=== PATIENT | female | born 2000 | race Caucasian/White ===

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

== ENCOUNTER 2019-04-09 15:39 | Emergency (ER) | payer BC, OTHER ==
[~2019-04-09] VITALS: Ht 160 cm; Wt 49.0 kg
[2019-04-09 15:47] VITALS: BP 108/71
[2019-04-09 16:31] LABS: BILIRUBIN NEGATIVE (NEGATIVE); BLOOD NEGATIVE (NEGATIVE); CLARITY CLEAR (CLEAR); COLOR YELLOW (YELLOW); GLUCOSE NEGATIVE (NEGATIVE); KETONE NEGATIVE (NEGATIVE); LEUKO ESTERASE 1+ (NEGATIVE); NITRITE NEGATIVE (NEGATIVE); PH 5.5 (5.0-9.0); UROBILINOGEN 0.2 E.U./dl (0.2-1.0)
[2019-04-09 16:50] LABS: BACTERIA 2+; RBC 0-2 rbc/hpf (0-2)
[2019-04-09] MEDS ORDERED: ZOFRAN4 MG PO (17:12)
== END 2019-04-09 17:24 | disposition home or self-care (01) ==
LOC: ED 15:39
PROVIDERS: Nurse Practitioner Family
DX: A08.4 Viral intestinal infection, unspecified (principal); R11.2 Nausea with vomiting, unspecified; K21.9 Gastro-esophageal reflux disease without esophagitis; Z79.899 Other long term (current) drug therapy

== ENCOUNTER 2019-05-23 16:44 | Emergency (ER) | payer BC, OTHER ==
[~2019-05-23] VITALS: Ht 160 cm; Wt 49.9 kg
[~2019-05-23 16:44] MED LIST changes: +ZOFRAN4 MG PO
[2019-05-23 16:52] VITALS: BP 115/63
[2019-05-23] MEDS ORDERED: AMOXICILLIN500 M2 PO (17:48)
[2019-05-23] MEDS ORDERED: IBUPROFEN600 MG PO (17:48)
== END 2019-05-23 18:11 | disposition home or self-care (01) ==
LOC: ED 16:44
DX: J02.9 Acute pharyngitis, unspecified (principal); Z79.899 Other long term (current) drug therapy

== ENCOUNTER 2019-06-02 17:01 | Emergency (ER) | payer BC, OTHER ==
[~2019-06-02] VITALS: Ht 160 cm; Wt 49.9 kg
[~2019-06-02 17:01] MED LIST changes: +AMOXICILLIN500 M2 PO; +IBUPROFEN600 MG PO
[2019-06-02 17:11] VITALS: BP 105/61
== END 2019-06-02 18:00 | disposition home or self-care (01) ==
LOC: ED 17:01
DX: J06.9 Acute upper respiratory infection, unspecified (principal); K21.9 Gastro-esophageal reflux disease without esophagitis

== ENCOUNTER 2019-06-14 14:57 | Emergency (ER) | payer BC, OTHER ==
[~2019-06-14] VITALS: Ht 160 cm; Wt 49.9 kg
[2019-06-14] MEDS ORDERED: ISIBLOOM 28 DA1 EACH PO (15:29)
[2019-06-14 16:02] LABS: BILIRUBIN 1+ (NEGATIVE); BLOOD NEGATIVE (NEGATIVE); CLARITY SL CLOUDY (CLEAR); COLOR YELLOW (YELLOW); GLUCOSE NEGATIVE (NEGATIVE); KETONE NEGATIVE (NEGATIVE); LEUKO ESTERASE NEGATIVE (NEGATIVE); NITRITE NEGATIVE (NEGATIVE); UROBILINOGEN 0.2 E.U./dl (0.2-1.0)
[2019-06-14 16:04] LABS: BACTERIA TRACE; MUCOUS 2+
[2019-06-14 16:23] VITALS: BP 122/89
[2019-06-14] MEDS ORDERED: ZOFRAN4 MG PO (16:24)
== END 2019-06-14 16:35 | disposition home or self-care (01) ==
LOC: ED 14:57
PROVIDERS: Physician Assistant
DX: A08.4 Viral intestinal infection, unspecified (principal); R11.10 Vomiting, unspecified; R19.7 Diarrhea, unspecified; R30.0 Dysuria; K21.9 Gastro-esophageal reflux disease without esophagitis; Z79.899 Other long term (current) drug therapy

== ENCOUNTER → 2020-03-22 | Outpatient (CLI) | payer BC, OTHER ==
[~2020-03-22] MED LIST changes: +ISIBLOOM 28 DA1 EACH PO
== END | disposition home or self-care (01) ==
LOC: COVID19 11:56
PROVIDERS: ATTEND Family Medicine
DX: Z20.828 Contact with and (suspected) exposure to other viral communicable diseases (principal)

== ENCOUNTER 2020-04-10 13:22 | Emergency (ER) | payer BC, OTHER ==
[~2020-04-10] VITALS: Ht 160 cm; Wt 52.2 kg
[2020-04-10 13:26] VITALS: BP 112/63
== END 2020-04-10 14:00 | disposition home or self-care (01) ==
LOC: ED 13:22
DX: R11.0 Nausea (principal); Z32.02 Encounter for pregnancy test, result negative; Z79.899 Other long term (current) drug therapy

== ENCOUNTER 2020-06-26 20:02 | Emergency (ER) | payer BC, OTHER ==
[~2020-06-26] VITALS: Ht 160 cm; Wt 49.9 kg
[2020-06-26] MEDS ORDERED: PYRIDOXINE HCL25 MG PO (20:28)
[2020-06-26] MEDS ORDERED: UNISOM25 M1 PO (20:29)
[2020-06-26] MEDS ORDERED: PRENATE CHEWABLE1 MG PO (20:29)
[2020-06-26 21:24] LABS: BASO # 0.1 10*3/uL (0.0-0.1); BASO % 0.7 % (0.0-1.0); EOS % 0.3 % (1.0-4.0); LYMPH # 2.5 10*3/uL (1.3-4.4); LYMPH % 20.9 % (27.0-41.0); MEAN CELL VOLUME 84.2 fl (81.0-99.0); MEAN CORPUSCULAR HGB 28.6 pg (27.0-31.0); MEAN PLATELET VOLUME 12.3 fl (9.6-12.3); MONO # 0.7 10*3/uL (0.1-1.0); MONO % 5.8 % (3.0-9.0); NEUT # 8.7 10*3/uL (2.3-7.9); PLATELET COUNT AUTOMATED 206 10*3/uL (130-400); RED BLOOD COUNT 4.75 10*6/uL (4.10-5.10); RED CELL DISTRI WIDTH 12.6 % (0-14.5); WHITE BLOOD COUNT 12.1 10*3/uL (4.8-10.8)
[2020-06-26 21:28] LABS: BILIRUBIN Negative (Negative); BLOOD Trace-Lysed (Negative); CLARITY Cloudy (Clear); COLOR Yellow (Yellow); GLUCOSE Negative (Negative); KETONE 1+ (Negative); LEUKO ESTERASE 1+ (Negative); NITRITE Negative (Negative); SPECIFIC GRAVITY 1.025 (1.001-1.030)
[2020-06-26 21:38] LABS: BACTERIA 3+; EPITHELIAL CELLS 21-30; WBC 31-40 wbc/hpf (0-5)
[2020-06-26 21:41] LABS: ALBUMIN 3.9 gm/dl (3.1-4.5); ALKALINE PHOSPHATASE 70 U/L (45-117); BUN 7 mg/dl (7-24); CHLORIDE 107 mmol/L (98-107); CREATININE 0.68 mg/dL (0.55-1.02); LIPASE 127 U/L (73-393); POTASSIUM 3.3 mmol/L (3.5-5.1); SGOT/AST 9 IU/L (3-35); SGPT/ALT 20 U/L (12-78); SODIUM 138 mmol/L (136-145); TOTAL PROTEIN 7.3 gm/dL (6.4-8.2)
[2020-06-26 22:00] VITALS: BP 110/60
== END 2020-06-26 22:18 | disposition home or self-care (01) ==
LOC: ED 20:02
PROVIDERS: Physician Assistant
DX: O21.8 Other vomiting complicating pregnancy (principal); Z3A.08 8 weeks gestation of pregnancy; Z79.899 Other long term (current) drug therapy

== ENCOUNTER → 2020-07-05 | Outpatient (CLI) | payer BC, OTHER ==
[~2020-07-05] MED LIST changes: +PRENATE CHEWABLE1 MG PO; +PYRIDOXINE HCL25 MG PO; +UNISOM25 M1 PO
== END | disposition home or self-care (01) ==
LOC: US 09:06
PROVIDERS: ATTEND Nurse Practitioner Women's Health
DX: O34.81 Maternal care for other abnormalities of pelvic organs, first trimester (principal); N83.11 Corpus luteum cyst of right ovary; Z3A.01 Less than 8 weeks gestation of pregnancy

== ENCOUNTER → 2020-07-15 | Outpatient (CLI) | payer BC, OTHER | END | disposition home or self-care (01) | LOC: US 11:19 | PROVIDERS: ATTEND Nurse Practitioner Women's Health | DX: O34.80 Maternal care for other abnormalities of pelvic organs, unspecified trimester (principal); N83.11 Corpus luteum cyst of right ovary; Z3A.00 Weeks of gestation of pregnancy not specified ==

== ENCOUNTER → 2020-07-21 | Outpatient (CLI) | payer BC, OTHER | END | disposition home or self-care (01) | LOC: US 11:30 | PROVIDERS: ATTEND Obstetrics & Gynecology | DX: O02.1 Missed abortion (principal) ==

== ENCOUNTER 2020-11-08 16:06 | Emergency (ER) | payer BC, OTHER ==
[~2020-11-08] VITALS: Ht 160 cm; Wt 54.9 kg
[2020-11-08 17:09] VITALS: BP 109/62
[2020-11-08 18:29] LABS: BILIRUBIN Negative (Negative); BLOOD 3+ (Negative); CLARITY Cloudy (Clear); COLOR Red (Yellow); GLUCOSE Negative (Negative); KETONE Negative (Negative); LEUKO ESTERASE Trace (Negative); NITRITE Negative (Negative); PH 5.5 (4.5-8.0)
[2020-11-08 18:41] LABS: BACTERIA TRACE; RBC TNTC rbc/hpf (0-2); WBC 0-2 wbc/hpf (0-5)
[2020-11-08 19:23] LABS: BASO # 0.1 10*3/uL (0.0-0.1); BASO % 0.5 % (0.0-1.0); EOS # 0.1 10*3/uL (0.0-0.4); EOS % 0.8 % (1.0-4.0); HEMATOCRIT 40.2 % (37.0-47.0); LYMPH # 2.9 10*3/uL (1.3-4.4); LYMPH % 29.9 % (27.0-41.0); MEAN CELL VOLUME 83.6 fl (81.0-99.0); MEAN CORPUSCULAR HGB 28.5 pg (27.0-31.0); MEAN CORPUSCULAR HGB CONC 34.1 g/dl (33.0-37.0); MEAN PLATELET VOLUME 12.7 fl (9.6-12.3); MONO # 0.4 10*3/uL (0.1-1.0); MONO % 4.2 % (3.0-9.0); NEUT # 6.1 10*3/uL (2.3-7.9); NEUT % 64.3 % (47.0-73.0); PLATELET COUNT AUTOMATED 207 10*3/uL (130-400); RED BLOOD COUNT 4.81 10*6/uL (4.10-5.10); WHITE BLOOD COUNT 9.5 10*3/uL (4.8-10.8)
[2020-11-08 20:50] LABS: ALBUMIN 4.3 gm/dl (3.1-4.5); ALKALINE PHOSPHATASE 84 U/L (45-117); BUN 5 mg/dl (7-24); CHLORIDE 106 mmol/L (98-107); CREATININE 0.57 mg/dL (0.55-1.02); POTASSIUM 3.6 mmol/L (3.5-5.1); SGOT/AST 13 IU/L (3-35); SGPT/ALT 17 U/L (12-78); SODIUM 140 mmol/L (136-145); TOTAL PROTEIN 7.9 gm/dL (6.4-8.2)
== END 2020-11-08 20:05 | disposition home or self-care (01) ==
LOC: ED 16:06
PROVIDERS: Nurse Practitioner Family
DX: N93.8 Other specified abnormal uterine and vaginal bleeding (principal); Z79.899 Other long term (current) drug therapy

== ENCOUNTER 2021-03-20 11:04 | Emergency (ER) | payer OTHER ==
[~2021-03-20] VITALS: Ht 160 cm; Wt 56.2 kg
[2021-03-20 11:37] VITALS: BP 107/79
== END 2021-03-20 13:33 | disposition left against medical advice (07) ==
LOC: ED 11:04
DX: R07.9 Chest pain, unspecified (principal); R05.9 Cough, unspecified; Z53.21 Procedure and treatment not carried out due to patient leaving prior to being seen by health care provider

== ENCOUNTER 2021-06-05 13:25 | Emergency (ER) | payer OTHER ==
[2021-06-05 13:40] VITALS: BP 103/67
[2021-06-05 14:21] LABS: BASO # 0.1 10*3/uL (0.0-0.1); BASO % 0.4 % (0.0-1.0); EOS % 0.2 % (1.0-4.0); HEMATOCRIT 42.2 % (37.0-47.0); LYMPH # 1.6 10*3/uL (1.3-4.4); LYMPH % 13.2 % (27.0-41.0); MEAN CELL VOLUME 81.2 fl (81.0-99.0); MEAN CORPUSCULAR HGB 28.3 pg (27.0-31.0); MEAN CORPUSCULAR HGB CONC 34.8 g/dl (33.0-37.0); MEAN PLATELET VOLUME 12.4 fl (9.6-12.3); MONO # 0.7 10*3/uL (0.1-1.0); MONO % 5.8 % (3.0-9.0); NEUT # 9.4 10*3/uL (2.3-7.9); NEUT % 80.2 % (47.0-73.0); PLATELET COUNT AUTOMATED 236 10*3/uL (130-400); RED CELL DISTRI WIDTH 11.9 % (0-14.5); WHITE BLOOD COUNT 11.7 10*3/uL (4.8-10.8)
[2021-06-05 15:25] LABS: ALKALINE PHOSPHATASE 60 U/L (45-117); BUN 4 mg/dl (7-24); CHLORIDE 106 mmol/L (98-107); CREATININE 0.48 mg/dL (0.55-1.02); LIPASE 92 U/L (73-393); POTASSIUM 3.6 mmol/L (3.5-5.1); SGOT/AST 8 IU/L (3-35); SGPT/ALT 17 U/L (12-78); SODIUM 136 mmol/L (136-145); TOTAL PROTEIN 7.3 gm/dL (6.4-8.2)
[2021-06-05 16:34] LABS: BILIRUBIN Negative (Negative); BLOOD Negative (Negative); CLARITY Clear (Clear); COLOR Yellow (Yellow); GLUCOSE Negative (Negative); KETONE 3+ (Negative); LEUKO ESTERASE Trace (Negative); NITRITE Negative (Negative); PH 5.5 (4.5-8.0); SPECIFIC GRAVITY <= 1.005 (1.001-1.030); UROBILINOGEN 0.2 E.U./dl (0.0-1.0)
[2021-06-05 16:42] LABS: BACTERIA 3+
[2021-06-05] MEDS ORDERED: CEPHALEXIN500 M1 PO (16:57)
[2021-06-06] MEDS ORDERED: ZOFRAN4 MG SL (20:02)
== END 2021-06-05 17:25 | disposition home or self-care (01) ==
LOC: ED 13:25
PROVIDERS: Physician Assistant
DX: O98.811 Other maternal infectious and parasitic diseases complicating pregnancy, first trimester (principal); Z3A.01 Less than 8 weeks gestation of pregnancy; Z79.899 Other long term (current) drug therapy; Z90.89 Acquired absence of other organs

== ENCOUNTER 2021-06-06 11:32 | Emergency (ER) | payer OTHER ==
[~2021-06-06] VITALS: Ht 160 cm; Wt 57.2 kg
[~2021-06-06 11:32] MED LIST changes: +CEPHALEXIN500 M1 PO
[2021-06-06 13:57] LABS: BASO % 0.2 % (0.0-1.0); LYMPH # 0.3 10*3/uL (1.3-4.4); MEAN CELL VOLUME 81.5 fl (81.0-99.0); MEAN CORPUSCULAR HGB 28.2 pg (27.0-31.0); MEAN CORPUSCULAR HGB CONC 34.6 g/dl (33.0-37.0); MEAN PLATELET VOLUME 12.5 fl (9.6-12.3); MONO # 0.6 10*3/uL (0.1-1.0); MONO % 11.7 % (3.0-9.0); NEUT # 4.3 10*3/uL (2.3-7.9); NEUT % 81.4 % (47.0-73.0); PLATELET COUNT AUTOMATED 182 10*3/uL (130-400); RED BLOOD COUNT 4.54 10*6/uL (4.10-5.10); RED CELL DISTRI WIDTH 11.9 % (0-14.5); WHITE BLOOD COUNT 5.2 10*3/uL (4.8-10.8)
[2021-06-06 14:09] LABS: ALKALINE PHOSPHATASE 63 U/L (45-117); BUN 2 mg/dl (7-24); CHLORIDE 104 mmol/L (98-107); CREATININE 0.48 mg/dL (0.55-1.02); LIPASE 131 U/L (73-393); POTASSIUM 3.2 mmol/L (3.5-5.1); SGOT/AST 12 IU/L (3-35); SGPT/ALT 17 U/L (12-78); SODIUM 132 mmol/L (136-145); TOTAL PROTEIN 7.6 gm/dL (6.4-8.2)
[2021-06-06 14:25] LABS: BILIRUBIN Negative (Negative); BLOOD Negative (Negative); CLARITY Clear (Clear); COLOR Yellow (Yellow); GLUCOSE Negative (Negative); KETONE 4+ (Negative); LEUKO ESTERASE Negative (Negative); NITRITE Negative (Negative); PH 5.5 (4.5-8.0); SPECIFIC GRAVITY 1.025 (1.001-1.030); UROBILINOGEN 0.2 E.U./dl (0.0-1.0)
[2021-06-06 14:55] LABS: BACTERIA 1+; EPITHELIAL CELLS 31-40; MUCOUS 1+; WBC 0-2 wbc/hpf (0-5)
[2021-06-06 19:58] VITALS: BP 100/54
[2021-06-06] MEDS ORDERED: ZOFRAN4 MG SL (20:02)
== END 2021-06-06 22:28 | disposition home or self-care (01) ==
LOC: ED 11:32
PROVIDERS: Physician Assistant
DX: O21.0 Mild hyperemesis gravidarum (principal); O26.891 Other specified pregnancy related conditions, first trimester; R00.0 Tachycardia, unspecified; Z3A.01 Less than 8 weeks gestation of pregnancy; Z79.899 Other long term (current) drug therapy; Z90.89 Acquired absence of other organs

== ENCOUNTER 2022-02-27 17:22 | Emergency (ER) | payer OTHER, BC ==
[~2022-02-27] VITALS: Ht 160 cm; Wt 54.4 kg
[~2022-02-27 17:22] MED LIST changes: +ZOFRAN4 MG SL
[2022-02-27 17:36] VITALS: BP 108/77
[2022-02-27] MEDS ORDERED: AMOXICILLIN250 MG PO (17:39)
== END 2022-02-27 19:39 | disposition left against medical advice (07) ==
LOC: ED 17:22
DX: Z53.21 Procedure and treatment not carried out due to patient leaving prior to being seen by health care provider (principal)

== ENCOUNTER 2022-10-27 09:09 | Emergency (ER) | payer OTHER ==
[~2022-10-27] VITALS: Ht 160 cm; Wt 55.8 kg
[~2022-10-27 09:09] MED LIST changes: +AMOXICILLIN250 MG PO
[2022-10-27 09:45] LABS: BILIRUBIN Negative (Negative); BLOOD 3+ (Negative); CLARITY Clear (Clear); COLOR Yellow (Yellow); GLUCOSE Negative (Negative); KETONE Negative (Negative); LEUKO ESTERASE 2+ (Negative); NITRITE Negative (Negative); PH 5.5 (4.5-8.0)
[2022-10-27 09:57] LABS: WBC TNTC wbc/hpf (0-5)
[2022-10-27 10:02] LABS: BASO # 0.1 10*3/uL (0.0-0.1); BASO % 0.3 % (0.0-1.0); EOS # 0.1 10*3/uL (0.0-0.4); EOS % 0.3 % (1.0-4.0); LYMPH # 1.7 10*3/uL (1.3-4.4); LYMPH % 11.4 % (27.0-41.0); MEAN CORPUSCULAR HGB 27.8 pg (27.0-31.0); MEAN CORPUSCULAR HGB CONC 33.1 g/dl (33.0-37.0); MEAN PLATELET VOLUME 12.4 fl (9.6-12.3); MONO # 0.7 10*3/uL (0.1-1.0); MONO % 4.8 % (3.0-9.0); NEUT % 82.7 % (47.0-73.0); PLATELET COUNT AUTOMATED 208 10*3/uL (130-400); RED BLOOD COUNT 3.81 10*6/uL (4.10-5.10); RED CELL DISTRI WIDTH 13.7 % (0-14.5); WHITE BLOOD COUNT 14.5 10*3/uL (4.8-10.8)
[2022-10-27 10:34] LABS: ALKALINE PHOSPHATASE 91 U/L (46-116); CHLORIDE 106 mmol/L (98-107); LIPASE 35 U/L (12-53); POTASSIUM 3.4 mmol/L (3.4-5.1); SGPT/ALT 19 U/L (10-49); TOTAL PROTEIN 6.8 gm/dL (6.0-8.0)
[2022-10-27 10:38] LABS: BUN < 5 mg/dl (9-23)
[2022-10-27 13:48] VITALS: BP 102/59
== END 2022-10-27 14:30 | disposition short-term general hospital (02) ==
LOC: ED 09:09
PROVIDERS: Emergency Medicine
DX: O03.4 Incomplete spontaneous abortion without complication (principal); Z88.0 Allergy status to penicillin; Z79.2 Long term (current) use of antibiotics; Z90.89 Acquired absence of other organs

== ENCOUNTER 2024-10-04 00:42 | Emergency (ER) | payer OTHER ==
[~2024-10-04] VITALS: Ht 160 cm; Wt 56.7 kg
[2024-10-04 00:51] VITALS: BP 113/78
[2024-10-04] MEDS ORDERED: Ondansetron Hydrochloride 4 MG/2 ML VIAL IV ONE (01:00)
[2024-10-04] MEDS ORDERED: diphenhydrAMINE hydrochloride 50 MG/ML VIAL IV ONE (01:00)
[2024-10-04] MEDS ORDERED: Metoclopramide Hydrochloride 10 MG/2 ML VIAL IV ONE (01:00)
[2024-10-04] MEDS ORDERED: SODIUM CHLORIDE 0.9% 500 ML IV ONE (01:05)
[2024-10-04 01:25] LABS: BASO # 0.1 10*3/uL (0.0-0.1); BASO % 0.5 % (0.0-1.0); EOS # 0.1 10*3/uL (0.0-0.4); EOS % 0.5 % (1.0-4.0); MEAN CELL VOLUME 85.5 fl (81.0-99.0); MEAN CORPUSCULAR HGB 29.7 pg (27.0-31.0); MEAN PLATELET VOLUME 12.2 fl (9.6-12.3); MONO # 0.6 10*3/uL (0.1-1.0); MONO % 5.3 % (3.0-9.0); NEUT # 7.5 10*3/uL (2.3-7.9); NEUT % 72.5 % (47.0-73.0); NUCLEATED RED BLOOD CELL 0.0 % (0.0-0.0); NUCLEATED RED BLOOD CELL 0.0 10*3/uL (0.0-0.0); PLATELET COUNT AUTOMATED 241 10*3/uL (130-400); RED CELL DISTRI WIDTH 12.5 % (0-14.5)
[2024-10-04 01:49] LABS: BUN 7 mg/dl (9-23); SGPT/ALT 14 U/L (5-49)
[2024-10-04] MEDS ORDERED: OMEPRAZOLE40 MG PO (01:56)
[2024-10-04] MEDS ORDERED: Ondansetron4 MG PO (01:56)
[2024-10-04] MEDS ORDERED: REGLAN10 M1 PO (01:56)
== END 2024-10-04 02:01 | disposition home or self-care (01) ==
LOC: ED 00:42
PROVIDERS: Emergency Medicine
DX: K29.70 Gastritis, unspecified, without bleeding (principal); Z88.0 Allergy status to penicillin; Z90.89 Acquired absence of other organs

== ENCOUNTER 2025-01-24 12:08 | Emergency (ER) | payer SELFPAY ==
[~2025-01-24] VITALS: Ht 160 cm; Wt 61.2 kg
[~2025-01-24 12:08] MED LIST changes: +OMEPRAZOLE40 MG PO; +Ondansetron4 MG PO; +REGLAN10 M1 PO
[2025-01-24 12:17] VITALS: BP 114/76
[2025-01-24] MEDS ORDERED: BENZOCAINE 20% 11.9 GM GEL T STA (12:31)
[2025-01-24] MEDS ORDERED: PENICILLIN VK500 MG PO (12:31)
[2025-01-24] MEDS ORDERED: Motrin,Rufen800 MG PO (12:31)
[2025-01-24] MEDS ORDERED: PENICILLIN V POTASSIUM 500 MG TAB PO ONE (12:35)
== END 2025-01-24 13:38 | disposition home or self-care (01) ==
LOC: ED 12:08
DX: K04.7 Periapical abscess without sinus (principal); K08.89 Other specified disorders of teeth and supporting structures; K21.9 Gastro-esophageal reflux disease without esophagitis; Z90.89 Acquired absence of other organs; Z87.440 Personal history of urinary (tract) infections